=== PATIENT | female | born 1950 | race Caucasian/White ===

== ENCOUNTER → 2024-11-05 11:25 | Outpatient (REF) | payer MEDICARE, OTHER, SELFPAY | LOC: DHSLP 11:25 | PROVIDERS: ATTENDING PHYSICIAN Physician Assistant Medical | DX: G47.33 Obstructive sleep apnea (adult) (pediatric) (principal) | CPT/HCPCS: 95810 ==

== ENCOUNTER → 2024-11-07 12:43 | Outpatient (REF) | payer MEDICARE, OTHER, SELFPAY | LOC: RCS 12:43 | PROVIDERS: ATTENDING PHYSICIAN Internal Medicine Cardiovascular Disease; FAMILY PHYSICIAN Physician Assistant Medical | DX: E66.01 Morbid (severe) obesity due to excess calories (principal) | CPT/HCPCS: 93307; Q9957 ==